=== PATIENT | female | born 1985 | race Caucasian/White ===

== ENCOUNTER 2018-06-18 12:31 | Inpatient (IN) | payer MEDICAID ==
[2018-06-18] MEDS ORDERED: CARBOPROST 250 MCG INJ IM (13:00)
[2018-06-18] MEDS ORDERED: MISOPROSTOL 200 MCG TAB PR (13:00)
[2018-06-18] MEDS ORDERED: METHYLERGONOVINE 0.2 MG INJ IM (13:00)
[2018-06-18] MEDS ORDERED: BUTORPHANOL 2 MG INJ IV (13:00)
[2018-06-18] MEDS ORDERED: OXYTOCIN 30 UNITS/LR 500 ML IV (13:00)
[2018-06-18] MEDS ORDERED: LIDOCAINE 1% (MPF) 30 ML INJ INJ (13:00)
[2018-06-18] MEDS: LACTATED RINGER'S 1,000 ML IV ×2 (13:24→20:50)
[2018-06-18 13:42] LABS: ADD MAN DIFF? NO
[2018-06-18 13:44] LABS: BASOPHILS % 0.3 % (0.0-2.0); EOSINOPHILS # 0.1 10^3/ul (0.0-0.5); EOSINOPHILS % 1.6 % (0.0-7.0); HEMATOCRIT 32.8 % (37.0-47.0); HEMOGLOBIN 10.4 g/dl (12.0-16.0); LYMPHOCYTES % 16.2 % (15.0-51.0); MEAN CORPUSCULAR HEMOGLOBIN 27.2 pg (29.0-33.0); MEAN CORPUSCULAR HGB CONC 31.7 g/dl (32.0-37.0); MEAN CORPUSCULAR VOLUME 85.6 fl (82.0-101.0); MEAN PLATELET VOLUME 11.9 fl (7.4-10.4); MONOCYTE # 0.5 10^3/ul (0.3-0.9); MONOCYTES % 7.3 % (0.0-11.0); NEUTROPHIL # 4.7 10^3/ul (1.6-7.5); NEUTROPHILS % 74.1 % (39.0-77.0); PLATELET COUNT 146 10^3/UL (140-415); RED BLOOD COUNT 3.83 10^6/ul (4.20-5.40); RED CELL DISTRIBUTION WIDTH 14.6 % (11.5-14.5)
[2018-06-18 13:44] LABS: WHITE BLOOD COUNT 6.3 10^3/ul (4.8-10.8)
[2018-06-18 14:02] LABS: GLUCOSE 86 mg/dl (70-220)
[2018-06-18 14:04] LABS: INR 0.94; PARTIAL THROMBOPLASTIN TIME 24.7 Sec (23.0-35.0); PROTIME 12.7 Sec (11.9-14.9)
[2018-06-18 14:44] LABS: HIV 1&2 ANTIBODY NEGATIVE (NEGATIVE)
[2018-06-18] MEDS ORDERED: GUAIFENESIN/DM 5ML CUP PO ×2 (15:30→18:00)
[2018-06-18] MEDS: DEXTROSE 5%-LR 1,000 ML IV (17:25)
[2018-06-18 19:48] LABS: RAPID PLASMA REAGIN NONREACTIVE (NR)
[2018-06-19] MEDS: LACTATED RINGER'S 1,000 ML IV ×2 (00:12→10:21)
[2018-06-19] MEDS ORDERED: FENTAnyl 2MCG/ML-ROPIV 0.2% 100 ML (01:01)
[2018-06-19] MEDS ORDERED: NALOXONE (0.4 MG/ML) INJ IV (02:00)
[2018-06-19] MEDS: FENTAnyl 2MCG/ML-ROPIV 0.2% 100 ML BAG EPI ×2 (02:06→10:23)
[2018-06-19] MEDS: DEXTROSE 5%-LR 1,000 ML IV ×3 (07:21→17:30)
[2018-06-19] MEDS: OXYTOCIN 30 UNITS/LR 500 ML IV ×4 (11:53→22:04)
[2018-06-19 17:38] LABS: HEPATITIS B SURFACE ANTIGEN NEGATIVE (NEGATIVE)
[2018-06-19 19:26] LABS: ADD MAN DIFF? NO
[2018-06-19 19:33] LABS: BASOPHILS % 0.2 % (0.0-2.0); EOSINOPHILS % 0.4 % (0.0-7.0); HEMATOCRIT 34.5 % (37.0-47.0); HEMOGLOBIN 10.9 g/dl (12.0-16.0); LYMPHOCYTES % 8.7 % (15.0-51.0); MEAN CORPUSCULAR HEMOGLOBIN 27.3 pg (29.0-33.0); MEAN CORPUSCULAR HGB CONC 31.6 g/dl (32.0-37.0); MEAN CORPUSCULAR VOLUME 86.5 fl (82.0-101.0); MEAN PLATELET VOLUME 12.1 fl (7.4-10.4); MONOCYTE # 0.4 10^3/ul (0.3-0.9); MONOCYTES % 3.3 % (0.0-11.0); NEUTROPHIL # 9.5 10^3/ul (1.6-7.5); NEUTROPHILS % 86.9 % (39.0-77.0); PLATELET COUNT 128 10^3/UL (140-415); RED BLOOD COUNT 3.99 10^6/ul (4.20-5.40); RED CELL DISTRIBUTION WIDTH 14.7 % (11.5-14.5)
[2018-06-19 19:33] LABS: WHITE BLOOD COUNT 10.9 10^3/ul (4.8-10.8)
[2018-06-19 19:49] LABS: ALBUMIN 3.1 g/dl (3.3-4.9); ALBUMIN/GLOBULIN RATIO 0.96; ALKALINE PHOSPHATASE 155 IU/L (42-121); ANION GAP 9 (5-13); ASPARTATE AMINO TRANSFERASE 19 IU/L (15-46); BILIRUBIN,INDIRECT 0.1 mg/dl (0-1.1); BILIRUBIN,TOTAL 0.1 mg/dl (0.2-1.3); BLOOD UREA NITROGEN 6 mg/dl (7-20); CALCIUM 8.8 mg/dl (8.4-10.2); CARBON DIOXIDE 24 mmol/L (21-31); CHLORIDE 105 mmol/L (97-110); Estimated GFR > 60 mL/min (>60); GLUCOSE 86 mg/dl (70-220); SODIUM 138 mmol/L (135-144); TOTAL PROTEIN 6.3 g/dl (6.1-8.1); URIC ACID 6.1 mg/dl (3.1-7.9)
[2018-06-19 19:51] LABS: ALANINE AMINOTRANSFERASE < 6 IU/L (13-69)
[2018-06-19 19:58] LABS: ADD UMIC YES; UR ASCORBIC ACID NEGATIVE (NEGATIVE); UR BACTERIA FEW /HPF (NONE SEEN); UR BILIRUBIN (Dip) NEGATIVE (NEGATIVE); UR BLOOD (Dip) 2+ mg/dL (NEGATIVE); UR CLARITY CLEAR (CLEAR); UR COLOR COLORLESS (YELLOW); UR GLUCOSE (Dip) NEGATIVE (NEGATIVE); UR KETONES (Dip) NEGATIVE (NEGATIVE); UR LEUKOCYTE ESTERASE (Dip) NEGATIVE Leu/ul (NEGATIVE); UR NITRITE (Dip) NEGATIVE (NEGATIVE); UR RBC 1 /HPF (0-5); UR SPECIFIC GRAVITY (Dip) 1.003 (1.003-1.030); UR TOTAL PROTEIN (Dip) NEGATIVE (NEGATIVE); UR UROBILINOGEN (Dip) NEGATIVE (NEGATIVE); UR WBC 1 /HPF (0-5)
[2018-06-19] MEDS: IBUPROFEN 600 MG TAB PO ×2 (20:08→23:32)
[2018-06-19] MEDS: LACTATED RINGER'S 1,000 ML IV* (21:05)
[2018-06-19] MEDS ORDERED: MISOPROSTOL 200 MCG TAB PR (21:30)
[2018-06-19] MEDS ORDERED: METHYLERGONOVINE 0.2 MG INJ IM (21:30)
[2018-06-19] MEDS ORDERED: ACETAMINOPHEN 325 MG TAB PO (21:30)
[2018-06-19] MEDS ORDERED: CARBOPROST 250 MCG INJ IM (21:30)
[2018-06-19] MEDS: HYDROCODONE/APAP (5/325) TAB PO (22:00)
[2018-06-19] MEDS: WITCH HAZEL/GLYCERIN PAD PR (23:17)
[2018-06-19] MEDS: BENZOCAINE 20% 56 ML SPRAY TOP (23:17)
[2018-06-20] MEDS: LACTATED RINGER'S 1,000 ML IV* (04:41)
[2018-06-20] MEDS: IBUPROFEN 600 MG TAB PO ×3 (05:18→18:24)
[2018-06-20] MEDS: SENNA/DOCUSATE NA (8.6MG/50MG) TAB PO ×2 (08:20→20:40)
[2018-06-20] MEDS: HYDROCODONE/APAP (5/325) TAB PO (08:21)
[2018-06-20] MEDS: DIBUCAINE 1% 30 GM OINT TOP (08:22)
[2018-06-20 08:51] LABS: ADD MAN DIFF? NO
[2018-06-20 08:55] LABS: BASOPHILS % 0.3 % (0.0-2.0); EOSINOPHILS # 0.1 10^3/ul (0.0-0.5); EOSINOPHILS % 0.9 % (0.0-7.0); HEMATOCRIT 32.1 % (37.0-47.0); HEMOGLOBIN 10.2 g/dl (12.0-16.0); LYMPHOCYTES # 0.8 10^3/ul (0.8-2.9); MEAN CORPUSCULAR HEMOGLOBIN 26.6 pg (29.0-33.0); MEAN CORPUSCULAR HGB CONC 31.8 g/dl (32.0-37.0); MEAN CORPUSCULAR VOLUME 83.8 fl (82.0-101.0); MEAN PLATELET VOLUME 12.1 fl (7.4-10.4); MONOCYTE # 0.5 10^3/ul (0.3-0.9); MONOCYTES % 5.8 % (0.0-11.0); NEUTROPHIL # 7.7 10^3/ul (1.6-7.5); NEUTROPHILS % 83.3 % (39.0-77.0); PLATELET COUNT 108 10^3/UL (140-415); RED BLOOD COUNT 3.83 10^6/ul (4.20-5.40); RED CELL DISTRIBUTION WIDTH 14.7 % (11.5-14.5)
[2018-06-20 08:55] LABS: WHITE BLOOD COUNT 9.2 10^3/ul (4.8-10.8)
[2018-06-21] MEDS: IBUPROFEN 600 MG TAB PO ×3 (00:15→12:04)
[2018-06-21 08:05] LABS: ADD MAN DIFF? NO
[2018-06-21 08:17] LABS: WHITE BLOOD COUNT 6.9 10^3/ul (4.8-10.8)
[2018-06-21 08:17] LABS: BASOPHILS % 0.4 % (0.0-2.0); EOSINOPHILS # 0.2 10^3/ul (0.0-0.5); EOSINOPHILS % 2.5 % (0.0-7.0); HEMATOCRIT 32.4 % (37.0-47.0); LYMPHOCYTES # 1.2 10^3/ul (0.8-2.9); LYMPHOCYTES % 17.9 % (15.0-51.0); MEAN CORPUSCULAR HEMOGLOBIN 26.9 pg (29.0-33.0); MEAN CORPUSCULAR HGB CONC 30.9 g/dl (32.0-37.0); MEAN CORPUSCULAR VOLUME 87.1 fl (82.0-101.0); MONOCYTE # 0.4 10^3/ul (0.3-0.9); MONOCYTES % 6.2 % (0.0-11.0); NEUTROPHILS % 72.1 % (39.0-77.0); PLATELET COUNT 128 10^3/UL (140-415); RED BLOOD COUNT 3.72 10^6/ul (4.20-5.40); RED CELL DISTRIBUTION WIDTH 14.6 % (11.5-14.5)
[2018-06-21] MEDS: SENNA/DOCUSATE NA (8.6MG/50MG) TAB PO (08:32)
[2018-06-21] MEDS ORDERED: INFLUENZA VIRUS VACCINE 0.5 ML (DISPENSING) IM* (10:00)
[2018-06-21] MEDS: DIPHTH/TET/ACEL PERTUSS (ADULT) 0.5 ML VIAL IM* (11:07)
[2018-06-21] MEDS: MEASLES,MUMPS,RUBELLA VACCINE INJ SC* (12:05)
== END 2018-06-21 13:30 | disposition home or self-care (01) | DRG 807 ==
LOC: L-D 12:31 → PP1 06-19 20:19
PROVIDERS: Obstetrics & Gynecology
PROC: 10E0XZZ Delivery of Products of Conception, External Approach (ICD-10-PCS; principal; 2018-06-19)
DX: O24.429 Gestational diabetes mellitus in childbirth, unspecified control (principal); Z37.0 Single live birth; O76 Abnormality in fetal heart rate and rhythm complicating labor and delivery; O69.81X0 Labor and delivery complicated by cord around neck, without compression, not applicable or unspecified; Z3A.38 38 weeks gestation of pregnancy; Z23 Encounter for immunization
CPT/HCPCS: 62319; 80053; 81001; 82947; 82962; 84560; 85025; 85610; 85730; 86592; 86703; 86850; 86900; 86901; 87340; 90715